=== PATIENT | female | born 1970 | race African-American/Black ===

== ENCOUNTER 2017-05-09 09:36 | Emergency (ER) | payer BC ==
[~2017-05-09] VITALS: Ht 177.8 cm; Wt 117.9 kg
[2017-05-09 09:56] VITALS: BP 117/65
== END 2017-05-09 10:36 | disposition home or self-care (01) ==
LOC: ER 09:36
DX: S30.854A Superficial foreign body of vagina and vulva, initial encounter (principal); X58.XXXA Exposure to other specified factors, initial encounter; Y93.89 Activity, other specified; Y99.8 Other external cause status; Y92.89 Other specified places as the place of occurrence of the external cause